=== PATIENT | female | born 1950 | race Caucasian/White ===

== ENCOUNTER 2022-02-06 14:28 | Outpatient (CLI) | payer MEDICARE, BC, SELFPAY ==
[2022-02-06 16:22] LABS: Albumin* 4.8 g/dL (3.3-5.0); Chloride* 101 mmol/L (96-114)
[2022-02-06 16:23] LABS: Potassium* 4.5 mmol/L (3.6-5.1); Sodium* 140 mmol/L (135-149)
[2022-02-06 16:25] LABS: Alanine Aminotransferase* 16 U/L (4-35); Alkaline Phosphatase* 101 U/L (40-150); Aspartate Amino Transferase* 25 U/L (12-35); Bilirubin Total* 0.4 mg/dL (0.1-1.5); Blood Urea Nitrogen* 22 mg/dL (7-30); Carbon Dioxide* 27 mmol/L (20-32); Cholesterol* 222 mg/dL (90-199); Creatinine* 0.7 mg/dL (0.5-1.5); Estimated Glomerular Filt Rate 91 ml/min; Glucose* 89 mg/dL (60-115); Total Protein* 7.8 g/dL (6.0-8.3)
[2022-02-06 16:26] LABS: Calcium* 9.7 mg/dL (8.4-10.6); HDL Cholesterol* 85 mg/dL (>=50); LDL Cholesterol Calculated 107 mg/dL (<100); Triglycerides* 149 mg/dL (40-149)
== END 2022-02-06 14:29 | disposition home or self-care (01) ==
PROVIDERS: Visit Provider Family Medicine
DX: Z00.00 Encounter for general adult medical examination without abnormal findings (principal); R10.11 Right upper quadrant pain; R53.83 Other fatigue; R03.0 Elevated blood-pressure reading, without diagnosis of hypertension; Z13.6 Encounter for screening for cardiovascular disorders
CPT/HCPCS: 80053; 80061; 84443

== ENCOUNTER 2022-02-13 15:40 | Outpatient (CLI) | payer MEDICARE, BC, SELFPAY ==
--- NOTE | 2022-02-13 16:00 | CRLHL7_ITS ---
For Patients: As a result of the Century Cures Act, medical imaging exams and procedure reports are released immediately into your electronic medical record. You may view this report before your referring provider. If you have questions, please contact your health care provider. INDICATION: Right upper quadrant abdominal pain. COMPARISON: None. TECHNIQUE: Real time epstein scale imaging was performed of the right upper quadrant. FINDINGS: The patient`s liver is of normal size and has uniform echogenicity. There is a normal appearance of the hepatic IVC and proximal abdominal aorta. Proximal abdominal aorta measures 2 cm in AP dimension. There is no evidence of ascites. The gallbladder is of normal size and there is no evidence of intraluminal stones or sludge. The gallbladder wall measures 3.0 mm in thickness. No sonographic Toledo sign. The common bile duct is of normal size and measures 3.0 mm in diameter at the level of the shaun hepatis. The pancreas appears normal. There is no evidence of a stone or hydronephrosis within the right kidney. The right kidney measures 9.0 cm in length. IMPRESSION: Normal right upper quadrant ultrasound. Dictated by Joe Prieto MD @ 02/13/2022 9:13:23 PM (Electronically Signed)
== END 2022-02-13 15:41 | disposition home or self-care (01) ==
LOC: US 15:41
PROVIDERS: Visit Provider Family Medicine
DX: R10.11 Right upper quadrant pain (principal)
CPT/HCPCS: 76705

== ENCOUNTER 2022-12-25 13:26 | Outpatient (CLI) | payer MEDICARE, BC, SELFPAY | END 2022-12-25 13:27 | disposition home or self-care (01) | PROVIDERS: Visit Provider Family Medicine | DX: R03.0 Elevated blood-pressure reading, without diagnosis of hypertension (principal); E78.5 Hyperlipidemia, unspecified; M85.80 Other specified disorders of bone density and structure, unspecified site | CPT/HCPCS: 80053; 80061; 82306 ==

== ENCOUNTER 2023-02-03 13:00 | Outpatient (RCR) | payer MEDICARE, BC, SELFPAY ==
--- NOTE | 2023-01-20 14:18 | PT.OPEX ---
PT [place] Out[facility] Eval PT [facility] Outpatient Eval Start: 01/20/23 07:51 Freq: Status: Active Protocol: Document 01/20/23 07:51 JANA (Rec: 01/20/23 14:17 JANA [id number]) E-signed By Darleen Han PT Physical Therapy Outpatient Evaluation Insurance Information Recert Due Date 04/16/23 Insurance Name Medicare B,Blue Cross/Blue Shield Medical Diagnosis Neck pain Left shoulder pain Treating Diagnosis Cervicalgia, left shoulder pain, periscapular and RC weakness, poor postural positioning Referring Ankita Whittington Subjective Subjective Shahana reports to PT with primary complaint of left neck and left shoulder pain which initially began after shoveling last winter. She notes neck pain has gotten somewhat better with use of heat but shoulder pain continues to be present particularly with motions such as pulling up her pants. Pain is localized to anterior aspect of shoulder with radiating symptoms down mid shaft of humerus. Neck pain is localized to left upper trapezius without radicular symptoms. Goals are to reduce pain with full range of motion of her shoulder. 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 She has tried icing her shoulder and doing 10 day regimen of anti- inflammatories. The anti- inflammatories helped but pain since returned after stopping use. PMH: unremarkable Pain Comments 5-6/10 worst Date of Last Physician Visit 12/25/22 Objective Other/Pertinent Objective Shoulder AROM: -WNL and pain free except functional IR to T3 on R and to T7 on L with mild anterior shoulder discomfort Sitting posture: rounded shoulder and slight forward head Cervical ROM: WNL, slight L sided cervical pain with right rotation Palpation: TTP proximal bicep tendon and L UT UE Strength (R/L): -ER0: R: 5/5, L: 4/5 -IR0: R: 5/5, L: 5/5 -FF: R: 5/5, L: 4/5 -Abduction: R: 5/5, L: 5/5 -Mid Trap: R: 4+/5, L: 4+/5 -Lower Trap: R: 3+/5, L: 3+/5 Cervical Screen: -Spurlings: - -Compression/Distraction: - Impingement: -Potts-Remi: - -Neers: - Bicep Tendon: -Speeds: + Rotator Cuff: -Drop Arm Test: - -ER Lag: - -Belly Press: - Functional Test Performed & Score QuickDASH: 4.5/100 Assessment Assessment/Impression Patient is a 72 year old female presenting to physical therapy for evaluation and treatment of neck and shoulder pain. Patient presents with periscapular and posterior RC weakness, proximal bicep tendon pain consistent with bicep tendonitis with secondary diagnosis of L UT strain. These impairments are limiting the patients ability to reach behind her back and pull up her pants, return to heavier lifting and technician. Patient appears motivated to participate in PT and presents with good prognosis to improve mobility, strength, proprioception and return to functional activities with skilled physical therapy intervention. Primary Functional Limitations reach behind her back and pull up her pants, return to heavier lifting and technician Plan of Care Rehabilitation Potential Good Physical Therapy Goals In 6 weeks (03/03/23) Patient will demonstrate WNL and pain free shoulder ROM in order to perform ADLs including donning pants without pain Pt will report <2/10 neck and shoulder pain with light to moderate technician such as vacuuming In 10 weeks (03/31/23) Pt will exhibit 4.5 point improvement in QuickDASH Outcome measure to demonstrate functional improvement and progress towards goals. Pt will report 0/10 neck and shoulder pain with moderate to heavy technician Pt will exhibit RC, GH, and periscapular strength no less than 4+/5 in order to return to all previous activities without pain Treatment Plan/Direct Interventions Ice/Cold/Vasopneumatic,Joint Mobilization,Manual Therapy, Neuromuscular Re-ed,Self-Care/ Home Management,Therapeutic Activities,Therapeutic Exercises Frequency/Duration 1x/wk for 4 weeks with additional 2 sessions prn based on progress Patient Will Be Discharged From Therapy Completion of LTG(s), Independent w/HEP, Independently Progressing Evaluation Billing Untimed Code Treatment Minutes 28 Complexity Low Certification Information Initial Certification Date 01/20/23 Ending Certification Date 04/16/23 Provider Signature Shows Agreement With POC & Medical Necessity Physician Signature & Date Requested Please Sign/Date Here Physician Comment/Change : Physician NPI Number #
== END 2023-04-02 11:02 | disposition home or self-care (01) ==
PROVIDERS: PCP Family Medicine; Visit Provider Family Medicine
DX: M54.2 Cervicalgia (principal); M25.512 Pain in left shoulder; R53.1 Weakness; R29.3 Abnormal posture; Z51.89 Encounter for other specified aftercare
CPT/HCPCS: 97110; 97140; 97161

== ENCOUNTER 2023-03-26 13:51 | Outpatient (CLI) | payer MEDICARE, BC, SELFPAY ==
--- NOTE | 2023-03-26 14:00 | CRLHL7_ITS ---
For Patients: As a result of the Century Cures Act, medical imaging exams and procedure reports are released immediately into your electronic medical record. You may view this report before your referring provider. If you have questions, please contact your health care provider. BILATERAL SCREENING MAMMOGRAM WITH COMPUTER-AIDED DETECTION TECHNIQUE: CC and MLO views were obtained. These mammographic images have been obtained using full-field digital technique. These mammographic images were interpreted with the benefit of computer-aided detection. COMPARISON FILM: 06/01/18, 08/05/16, 03/22/15. FINDINGS: The breasts are heterogeneously dense, which may obscure small masses IMPRESSION: There is no radiographic evidence for malignancy. ASSESSMENT: BI-RADS Category 1: Negative RECOMMENDATION: Routine screening mammogram in 1 year. A lay language report of this examination will be provided to the patient. Minh Ponce M.D. Diagnostic Radiologist [email or web address] WALE/Dictated by: Minh Ponce MD @ 03/31/2023 1:14:00 PM (Electronically Signed)
--- NOTE | 2023-03-26 14:30 | CRLHL7_ITS ---
For Patients: As a result of the Century Cures Act, medical imaging exams and procedure reports are released immediately into your electronic medical record. You may view this report before your referring provider. If you have questions, please contact your health care provider. DXA BONE MINERAL DENSITY STUDY Reason for exam: Osteopenia. Current height (in): 63. Weight (lb): 120. Menopause age: 40. Ethnicity: White. 1. Have you had a previous hip or vertebral fracture? No. 2. Have you had any fractures during your adult life which did not result from significant trauma (e.g., auto accident)? No. 3. Did either of your parents have a hip fracture? No. 4. Do you smoke? No. 5. Have you ever taken Glucocorticoids? No. 6. Do you have rheumatoid arthritis? No. 7. Do you have secondary osteoporosis? No. 8. Do you drink 3 or more alcoholic drinks per day? No. 9. Are you being treated for osteoporosis? No. 10. Have you ever taken any of the following medications: Actonel, Evista, Fosamax, Miacalcin, Reclast, Boniva, Forteo, HRT (i.e. estrogen/hormone therapy), Protelos, Prolia, Vitamin D, Calcium, other ??? please specify. ANSWER: Yes, vitamin D. 11. Do you have any of the following medical conditions: Anorexia or bulimia, asthma or emphysema, end stage renal disease, hyperparathyroidism, any seizure disorders, cancer, inflammatory bowel diseases, hysterectomy, other ??? please specify. ANSWER: Yes, hysterectomy. 12. What was your maximum height (inches)? 63.5. 13. Do you perform weight bearing exercise regularly? Yes. 14. Do you regularly consume dairy products? Yes. 15. Do you drink caffeinated beverages? Yes. 16. At what age did your period start? 11. 17. Are you premenopausal? No. 18. How many full term pregnancies have you had? 2. 19. Have you ever missed your period for more than 6 months in a row (not including or menopause)? No. TECHNIQUE: Bone mineral density study was performed using the [employer]. FINDINGS: The results of the study expressed as bone mineral density (BMD) are as follows: Lumbar spine L1 to L4: BMD: 0.810 g/cm2. T-score: -2.2. Z-score: 0.2. Neck Left: BMD: 0.574 g/cm2. T-score: -2.5. Z-score: -0.4 Right: BMD: 0.533 g/cm2. T-score: -2.8. Z-score: -0.8. Total Left: BMD: 0.726 g/cm2. T-score: -1.8. Z-score: -0.0. Right: BMD: 0.696 g/cm2. T-score: -2.0. Z-score: -0.3. IMPRESSION: Osteoporosis. *Comparison exams done prior to 09/2019 were performed on different unit, Accion. Minh Ponce M.D. Diagnostic Radiologist [email or web address] WALE/Dictated by: Minh Ponce MD @ 03/31/2023 12:54:00 PM (Electronically Signed)
== END 2023-03-26 13:52 | disposition home or self-care (01) ==
LOC: MAMMO 13:51
PROVIDERS: PCP Family Medicine; Visit Provider Family Medicine
DX: Z12.31 Encounter for screening mammogram for malignant neoplasm of breast (principal); R92.2 Inconclusive mammogram; M85.80 Other specified disorders of bone density and structure, unspecified site; M81.0 Age-related osteoporosis without current pathological fracture; Z78.0 Asymptomatic menopausal state
CPT/HCPCS: 77067; 77080

== ENCOUNTER 2023-04-09 15:04 | Outpatient (CLI) | payer MEDICARE, BC, SELFPAY | END 2023-04-09 15:05 | disposition home or self-care (01) | LOC: NFLDREF 04-15 18:44 | PROVIDERS: PCP Family Medicine; Referring Provider Family Medicine; Visit Provider Family Medicine | DX: E55.9 Vitamin D deficiency, unspecified (principal); M81.0 Age-related osteoporosis without current pathological fracture | CPT/HCPCS: 82306 ==

== ENCOUNTER 2023-12-24 13:13 | Outpatient (CLI) | payer MEDICARE, BC, SELFPAY | END 2023-12-24 13:14 | disposition home or self-care (01) | LOC: NFLDREF 12-25 08:33 | PROVIDERS: PCP Family Medicine; Referring Provider Family Medicine; Visit Provider Family Medicine | DX: E78.5 Hyperlipidemia, unspecified (principal); M81.0 Age-related osteoporosis without current pathological fracture; R03.0 Elevated blood-pressure reading, without diagnosis of hypertension | CPT/HCPCS: 80053; 80061; 82306 ==

== ENCOUNTER 2024-05-18 07:18 | Outpatient (CLI) | payer MEDICARE, BC, SELFPAY | END 2024-05-18 07:19 | disposition home or self-care (01) | LOC: NFLDREF 07:18 | PROVIDERS: PCP Family Medicine; Visit Provider Family Medicine | DX: N30.00 Acute cystitis without hematuria (principal); B96.89 Other specified bacterial agents as the cause of diseases classified elsewhere | CPT/HCPCS: 87086 ==

== ENCOUNTER 2024-06-30 12:58 | Outpatient (CLI) | payer MEDICARE, BC, SELFPAY | END 2024-06-30 12:59 | disposition home or self-care (01) | LOC: NFLDREF 07-01 01:38 | PROVIDERS: PCP Family Medicine; Referring Provider Family Medicine; Visit Provider Family Medicine | DX: M81.0 Age-related osteoporosis without current pathological fracture (principal) | CPT/HCPCS: 82306 ==

== ENCOUNTER 2024-07-01 09:40 | Outpatient (CLI) | payer MEDICARE, BC, SELFPAY ==
--- NOTE | 2024-07-01 09:45 | CRLHL7_ITS ---
For Patients: As a result of the Century Cures Act, medical imaging exams and procedure reports are released immediately into your electronic medical record. You may view this report before your referring provider. If you have questions, please contact your health care provider. BILATERAL SCREENING MAMMOGRAM WITH COMPUTER-AIDED DETECTION AND TOMOSYNTHESIS TECHNIQUE: CC and MLO views were obtained. These mammographic images have been obtained using full-field digital technique. These mammographic images were interpreted with the benefit of computer-aided detection. Breast Tomosynthesis was used in this interpretation. COMPARISON FILM: 03/26/23, 06/01/18, 08/05/16. FINDINGS: The breasts are heterogeneously dense, which may obscure small masses. IMPRESSION: There is no radiographic evidence for malignancy. ASSESSMENT: BI-RADS Category 1: Negative RECOMMENDATION: Routine screening mammogram in 1 year. A lay language report of this examination will be provided to the patient. Minh Ponce M.D. Diagnostic Radiologist [email or web address] SP/Dictated by: Minh Ponce MD @ 07/07/2024 10:15:00 AM (Electronically Signed)
== END 2024-07-01 09:41 | disposition home or self-care (01) ==
LOC: MAMMO 09:41
PROVIDERS: PCP Family Medicine; Visit Provider Family Medicine
DX: Z12.31 Encounter for screening mammogram for malignant neoplasm of breast (principal); R92.333 Mammographic heterogeneous density, bilateral breasts
CPT/HCPCS: 77063; 77067

== ENCOUNTER 2024-11-08 13:00 | Outpatient (RCR) | payer MEDICARE, BC, SELFPAY ==
--- NOTE | 2024-09-09 17:15 | PT.OPEX ---
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 Her surgery (hysterectomy and lifting the fascia) was approx 4-5 yrs ago. Approx 2 years later her repair failed result in POP. Her current symptoms include tissue protruding from her vagina. The tissue seems to decent more as the day goes on. Pt admits to difficulty at time with fully emptying her bladder. Does have to use external pressure at times to push the bladder back into the vagina to fully empty her bladder, and along the post vaginal wall to help with defecation. Pt is having daily BMs. Does occ need to push to evacuate stool and to fully empty her stool. Pt is not currently sexual active with her spouse but does well with intimacy with him. Pt is content at this time with her sexual status. Her goals for therapy include lifting bladder and reduce her POP symptoms. Date of Last 07/11/24 Physician Visit Occupation works with preschoolers Precautions Treatment POP symptoms Precautions/ Contraindications Objective Functional Test PF questionnaire: Performed & Score * Bladder function: 3 * Bowel function: 3 * Prolapse symptoms: 12 * Sexual function: NA Assessment Assessment/ 73 yo female presents to PT with symptoms of POP. Pt Impression has struggled with daily activities, work, and yard work. Typically her POP symptoms are worse by the end of the day. Pt does need to splint to aid with bowel and bladder function. She currently is not having issues with UI or urgency issue. With further questioning, pt reports her voiding schedule varies depending on location and time of day. In the morning, she will urinate approx 3 times within 2 hour time frame (possibly related to her coffee). While at work, will only urinate 1 time in a 6-8 hrs. She denies having a weak or slow stream. Does admit she is not drinking much during the day. She has 1 cup of coffee and another 8 oz of something else that could be a sparkling water or black tea/iced tea. At night, she is voiding 0-2 times a night. Despite pt having daily BMs, did find her stool consistency is very firm, type 1-3 on the BSS. Does need to push stool to help evacuate bowels. Pt had 2 pregnancies, with fairly quick deliveries (4 hr- 45 mins), and sustained a tear in her cervix and it needed to be cauterized. Did not have time to complete assessment of her PFM function today. Will work on completing assessment over the next couple visits. With today's finding and her subjective c/o and her significant POP, pt is appropriate for further skilled PT services to assess and treat her PFM dysfunction. Treatment will include use of therapeutic exercise, therapeutic activities, neuromuscular re-ed, manual therapy, and self cares for symptom reduction. Plan of Care Rehabilitation Good Potential Physical Therapy Short term goals to be achieved in 4 weeks. Goals 1. Pt will report 30% improvement in overall POP symptoms including pain/discomfort, heaviness and bulging for improved QOL. 2. Pt will demonstrate decreased resting tone/muscle activity following a PFM contraction (<3 microvolts) to restore appropriate PFM tone/activity. 3. Pt will demonstrate improved toilet hygiene with postural consideration and no straining to better evacuate bowels and bladder terminal gauger goals to be achieved in 12 weeks. 1. Pt will be independent with home program for POP symptom reduction. 2. Pt able to feel like her is fully emptying bladder/ bowels >80% with using proper techniques 3. Pt will demonstrate independent pelvic floor lift on exhale to support structurally with exertion, including with lifting, bending, transfers, etc 4. Pt will report an 50% reduction in her POP symptoms to improve her QOL including less protrusion by end of day. Coordination/ Referral Source Communication With Treatment Plan/ Manual Therapy,Neuromuscular Re-ed,Self-Care/Home Direct Interventions Management,Therapeutic Activities,Therapeutic Exercises Frequency/Duration 1 time a week, for up to 12 visits Patient Will Be Completion of LTG(s),Skills Plateau,Independent w/HEP, Discharged From Independently Progressing Therapy Evaluation Billing Untimed Code 40 Treatment Minutes Complexity Moderate Certification Information Initial 09/09/24 Certification Date Ending Certification 09/04/25 Date Provider Signature Yes Required Provider Signature POC & Medical Necessity Shows Agreement With Physician NPI Number Write NPI# Here Physician Comment/ : Change Physician Signature Please Sign/Date Here & Date Requested
== END 2025-03-08 23:59 | disposition home or self-care (01) ==
PROVIDERS: PCP Family Medicine; Visit Provider Obstetrics & Gynecology
DX: N99.3 Prolapse of vaginal vault after hysterectomy (principal); Z51.89 Encounter for other specified aftercare
CPT/HCPCS: 97110; 97140; 97162; 97535